=== PATIENT | male | born 1965 | race African-American/Black ===

== ENCOUNTER 2021-04-15 11:07 | Inpatient (IN) | payer OTHER ==
[2021-04-15 14:24] VITALS: BMI 26.9
[2021-04-15] MEDS ORDERED: MAGNESIUM CITRATE 300 ML BOTTLE PO PRN (18:57)
[2021-04-15] MEDS ORDERED: ACETAMINOPHEN 325 MG TABLET (FP) PO PRN (18:57)
[2021-04-15] MEDS ORDERED: MAG HYDROX/AL HYDROX/SIMETH 30 ML UNIT-DOSE CUP PO PRN (18:57)
[2021-04-15] MEDS ORDERED: LOPERAMIDE HCL 2 MG CAPSULE PO PRN (18:57)
[2021-04-15] MEDS ORDERED: IBUPROFEN 400 MG TABLET (FP) PO PRN (18:57)
[2021-04-15] MEDS ORDERED: P-EPHED 60MG/TRIPROLIDI 2.5MG TABLET PO PRN (18:57)
[2021-04-15] MEDS ORDERED: guaiFENesin 200 MG/10 ML 10 ML UNIT-DOSE CUPS PO PRN (18:57)
[2021-04-15] MEDS ORDERED: MAGNESIUM HYDROX 2400MG/30ML ORAL SUSPENSION 30 ML CUP PO PRN (18:57)
[2021-04-15] MEDS ORDERED: TUBERCULIN PPD 5 TU/0.1ML VIAL ID ONE (20:34)
[2021-04-15] MEDS: THIAMINE HCL 100 MG TABLET (FP) PO SCH (21:32)
[2021-04-15] MEDS: MELATONIN 5 MG TABLETS PO SCH (21:32)
[2021-04-16 08:21] LABS: HEMATOCRIT 43.9 % (35.4-49); HEMOGLOBIN 15.3 GM/dL (11.7-16.9); MCH 30.9 pg (25.7-33.7); MCHC 34.9 g/dl (32.0-35.9); MEAN CELL VOLUME 88.4 fl (80-96); MEAN PLT VOLUME 8.6 fl (7.5-11.1); PLATELET COUNT 244 10^3/uL (134-434); RBC 4.96 M/mm3 (4.00-5.60); RDW 13.7 % (11.9-15.9); WHITE BLOOD COUNT 5.1 K/mm3 (4.0-10.0)
[2021-04-16 09:06] LABS: ALBUMIN 3.6 g/dl (3.4-5.0); BLOOD UREA NITROGEN 12.7 mg/dL (7-18)
[2021-04-16 09:09] LABS: CREATININE 1.3 mg/dL (0.55-1.3)
[2021-04-16 09:11] LABS: BILIRUBIN,TOTAL 0.6 mg/dL (0.2-1)
[2021-04-16] MEDS: PRENATAL VITAMINS W/ FOLIC ACID TABLET (FP) PO SCH (10:05)
[2021-04-16] MEDS: NICOTINE 10 MG CARTRIDGE (INHALER) IH PRN (10:06)
[2021-04-16] MEDS: DOLUTEGRAVIR SODIUM 50 MG TABLET (NON-FORMULARY) PO SCH (11:03)
[2021-04-16] MEDS: EMTRICITABINE/TENOFOV ALAFENAM (DESCOVY) TABLET PO SCH (11:03)
[2021-04-16] MEDS ORDERED: PT OWN MED DRAWER 7, Y5N ONE (14:48)
[2021-04-16 15:32] LABS: URINE APPEARANCE CLEAR; URINE BILIRUBIN NEGATIVE (NEGATIVE); URINE COLOR YELLOW; URINE GLUCOSE (UA) NEGATIVE (NEGATIVE); URINE KETONE NEGATIVE (NEGATIVE); URINE LEUK ESTERASE NEGATIVE (NEGATIVE); URINE NITRITE NEGATIVE (NEGATIVE); URINE PROTEIN NEGATIVE (NEGATIVE); URINE UROBILINOGEN 0.2 mg/dL (0.2-1.0)
[2021-04-16] MEDS: THIAMINE HCL 100 MG TABLET (FP) PO SCH (22:03)
[2021-04-16] MEDS: MELATONIN 5 MG TABLETS PO SCH (22:03)
[2021-04-17] MEDS ORDERED: PT OWN MED DRAWER 7, Y5N ONE ×2 (03:20→14:24)
[2021-04-17] MEDS: EMTRICITABINE/TENOFOV ALAFENAM (DESCOVY) TABLET PO SCH (07:24)
[2021-04-17] MEDS: DOLUTEGRAVIR SODIUM 50 MG TABLET (NON-FORMULARY) PO SCH (07:25)
[2021-04-17] MEDS: PRENATAL VITAMINS W/ FOLIC ACID TABLET (FP) PO SCH (10:09)
[2021-04-17] MEDS: NICOTINE POLACRILEX 2 MG GUM BC PRN (10:10)
[2021-04-17] MEDS: THIAMINE HCL 100 MG TABLET (FP) PO SCH (23:24)
[2021-04-17] MEDS: MELATONIN 5 MG TABLETS PO SCH (23:24)
[2021-04-18] MEDS ORDERED: PT OWN MED DRAWER 7, Y5N ONE ×2 (05:45→07:03)
[2021-04-18] MEDS: EMTRICITABINE/TENOFOV ALAFENAM (DESCOVY) TABLET PO SCH (07:03)
[2021-04-18] MEDS: DOLUTEGRAVIR SODIUM 50 MG TABLET (NON-FORMULARY) PO SCH (07:03)
[2021-04-18] MEDS: NICOTINE POLACRILEX 2 MG GUM BC PRN (09:45)
[2021-04-18] MEDS: PRENATAL VITAMINS W/ FOLIC ACID TABLET (FP) PO SCH (09:45)
[2021-04-18] MEDS: THIAMINE HCL 100 MG TABLET (FP) PO SCH (23:21)
[2021-04-18] MEDS: MELATONIN 5 MG TABLETS PO SCH (23:21)
[2021-04-19] MEDS ORDERED: PT OWN MED DRAWER 7, Y5N ONE (06:33)
[2021-04-19] MEDS: PRENATAL VITAMINS W/ FOLIC ACID TABLET (FP) PO SCH (09:54)
[2021-04-19] MEDS: EMTRICITABINE/TENOFOV ALAFENAM (DESCOVY) TABLET PO SCH (10:12)
[2021-04-19] MEDS: DOLUTEGRAVIR SODIUM 50 MG TABLET (NON-FORMULARY) PO SCH (10:12)
[2021-04-19] MEDS: MELATONIN 5 MG TABLETS PO SCH (23:37)
[2021-04-19] MEDS: THIAMINE HCL 100 MG TABLET (FP) PO SCH (23:37)
[2021-04-20] MEDS ORDERED: PT OWN MED DRAWER 7, Y5N ONE (05:28)
[2021-04-20] MEDS: EMTRICITABINE/TENOFOV ALAFENAM (DESCOVY) TABLET PO SCH (07:00)
[2021-04-20] MEDS: DOLUTEGRAVIR SODIUM 50 MG TABLET (NON-FORMULARY) PO SCH (07:00)
[2021-04-20] MEDS: PRENATAL VITAMINS W/ FOLIC ACID TABLET (FP) PO SCH (10:15)
[2021-04-20] MEDS: MELATONIN 5 MG TABLETS PO SCH (22:36)
[2021-04-20] MEDS: THIAMINE HCL 100 MG TABLET (FP) PO SCH (22:36)
[2021-04-21] MEDS ORDERED: PT OWN MED DRAWER 7, Y5N ONE ×2 (06:35→10:28)
[2021-04-21] MEDS: PRENATAL VITAMINS W/ FOLIC ACID TABLET (FP) PO SCH (10:05)
[2021-04-21] MEDS: EMTRICITABINE/TENOFOV ALAFENAM (DESCOVY) TABLET PO SCH (10:05)
[2021-04-21] MEDS: DOLUTEGRAVIR SODIUM 50 MG TABLET (NON-FORMULARY) PO SCH (10:05)
[2021-04-21] MEDS: NICOTINE 10 MG CARTRIDGE (INHALER) IH PRN (10:06)
[2021-04-21] MEDS: THIAMINE HCL 100 MG TABLET (FP) PO SCH (21:42)
[2021-04-21] MEDS: MELATONIN 5 MG TABLETS PO SCH (21:42)
[2021-04-22] MEDS ORDERED: PT OWN MED DRAWER 7, Y5N ONE (05:47)
[2021-04-22] MEDS: DOLUTEGRAVIR SODIUM 50 MG TABLET (NON-FORMULARY) PO SCH (07:01)
[2021-04-22] MEDS: EMTRICITABINE/TENOFOV ALAFENAM (DESCOVY) TABLET PO SCH (07:01)
[2021-04-22] MEDS: PRENATAL VITAMINS W/ FOLIC ACID TABLET (FP) PO SCH (10:19)
[2021-04-22] MEDS: NICOTINE 10 MG CARTRIDGE (INHALER) IH PRN (10:19)
[2021-04-22] MEDS: MELATONIN 5 MG TABLETS PO SCH (21:52)
[2021-04-22] MEDS: THIAMINE HCL 100 MG TABLET (FP) PO SCH (21:52)
[2021-04-22] MEDS: NICOTINE POLACRILEX 2 MG GUM BC PRN (21:54)
[2021-04-23] MEDS: EMTRICITABINE/TENOFOV ALAFENAM (DESCOVY) TABLET PO SCH (07:07)
[2021-04-23] MEDS: DOLUTEGRAVIR SODIUM 50 MG TABLET (NON-FORMULARY) PO SCH (07:07)
[2021-04-23] MEDS: PRENATAL VITAMINS W/ FOLIC ACID TABLET (FP) PO SCH (09:35)
[2021-04-23] MEDS: NICOTINE POLACRILEX 2 MG GUM BC PRN (09:36)
[2021-04-23] MEDS: THIAMINE HCL 100 MG TABLET (FP) PO SCH (22:36)
[2021-04-23] MEDS: MELATONIN 5 MG TABLETS PO SCH (22:37)
[2021-04-24] MEDS: DOLUTEGRAVIR SODIUM 50 MG TABLET (NON-FORMULARY) PO SCH (07:00)
[2021-04-24] MEDS: EMTRICITABINE/TENOFOV ALAFENAM (DESCOVY) TABLET PO SCH (07:00)
[2021-04-24] MEDS: PRENATAL VITAMINS W/ FOLIC ACID TABLET (FP) PO SCH (10:01)
[2021-04-24] MEDS: NICOTINE 10 MG CARTRIDGE (INHALER) IH PRN ×2 (10:01→21:44)
[2021-04-24] MEDS: MELATONIN 5 MG TABLETS PO SCH (21:44)
[2021-04-24] MEDS: THIAMINE HCL 100 MG TABLET (FP) PO SCH (21:44)
[2021-04-25] MEDS: EMTRICITABINE/TENOFOV ALAFENAM (DESCOVY) TABLET PO SCH (07:12)
[2021-04-25] MEDS: DOLUTEGRAVIR SODIUM 50 MG TABLET (NON-FORMULARY) PO SCH (07:12)
[2021-04-25] MEDS: PRENATAL VITAMINS W/ FOLIC ACID TABLET (FP) PO SCH (09:57)
[2021-04-25] MEDS: NICOTINE POLACRILEX 2 MG GUM BC PRN (09:57)
[2021-04-25] MEDS: MELATONIN 5 MG TABLETS PO SCH (21:46)
[2021-04-25] MEDS: THIAMINE HCL 100 MG TABLET (FP) PO SCH (21:46)
[2021-04-26] MEDS ORDERED: PT OWN MED DRAWER 7, Y5N ONE ×2 (03:30→07:18)
[2021-04-26] MEDS: NICOTINE 10 MG CARTRIDGE (INHALER) IH PRN ×2 (06:30→21:20)
[2021-04-26] MEDS: DOLUTEGRAVIR SODIUM 50 MG TABLET (NON-FORMULARY) PO SCH (07:17)
[2021-04-26] MEDS: EMTRICITABINE/TENOFOV ALAFENAM (DESCOVY) TABLET PO SCH (07:17)
[2021-04-26] MEDS: PRENATAL VITAMINS W/ FOLIC ACID TABLET (FP) PO SCH (10:07)
[2021-04-26] MEDS: MELATONIN 5 MG TABLETS PO SCH (21:20)
[2021-04-26] MEDS: THIAMINE HCL 100 MG TABLET (FP) PO SCH (21:20)
[2021-04-27] MEDS: DOLUTEGRAVIR SODIUM 50 MG TABLET (NON-FORMULARY) PO SCH (07:32)
[2021-04-27] MEDS: EMTRICITABINE/TENOFOV ALAFENAM (DESCOVY) TABLET PO SCH (07:32)
[2021-04-27] MEDS: PRENATAL VITAMINS W/ FOLIC ACID TABLET (FP) PO SCH (10:06)
[2021-04-27] MEDS: NICOTINE 10 MG CARTRIDGE (INHALER) IH PRN (10:07)
[2021-04-27] MEDS: MELATONIN 5 MG TABLETS PO SCH (21:32)
[2021-04-27] MEDS: THIAMINE HCL 100 MG TABLET (FP) PO SCH (21:32)
[2021-04-27] MEDS: NICOTINE POLACRILEX 2 MG GUM BC PRN (21:33)
[2021-04-28] MEDS: DOLUTEGRAVIR SODIUM 50 MG TABLET (NON-FORMULARY) PO SCH (07:23)
[2021-04-28] MEDS: EMTRICITABINE/TENOFOV ALAFENAM (DESCOVY) TABLET PO SCH (07:23)
[2021-04-28] MEDS: PRENATAL VITAMINS W/ FOLIC ACID TABLET (FP) PO SCH (10:02)
[2021-04-28] MEDS: NICOTINE 10 MG CARTRIDGE (INHALER) IH PRN ×2 (10:03→19:51)
[2021-04-28] MEDS: MELATONIN 5 MG TABLETS PO SCH (21:18)
[2021-04-28] MEDS: THIAMINE HCL 100 MG TABLET (FP) PO SCH (21:18)
[2021-04-29] MEDS ORDERED: PT OWN MED DRAWER 7, Y5N ONE (03:43)
[2021-04-29] MEDS: NICOTINE 10 MG CARTRIDGE (INHALER) IH PRN (06:35)
[2021-04-29 06:50] VITALS: BP 111/75; PULSE 81; TEMP 97.5
[2021-04-29] MEDS: EMTRICITABINE/TENOFOV ALAFENAM (DESCOVY) TABLET PO SCH (07:30)
[2021-04-29] MEDS: DOLUTEGRAVIR SODIUM 50 MG TABLET (NON-FORMULARY) PO SCH (07:30)
[2021-04-29] MEDS: PRENATAL VITAMINS W/ FOLIC ACID TABLET (FP) PO SCH (09:03)
== END 2021-04-29 09:20 | disposition home or self-care (01) | DRG 772 ==
LOC: YASAS 11:07 → Y3E 19:00
PROVIDERS: ADMIT Allergy & Immunology; ATTEND Allergy & Immunology
PROC: HZ42ZZZ Group Counseling for Substance Abuse Treatment, Cognitive-Behavioral (ICD-10-PCS; principal; 2021-04-15)
DX: F14.20 Cocaine dependence, uncomplicated (principal); F10.10 Alcohol abuse, uncomplicated; F17.210 Nicotine dependence, cigarettes, uncomplicated; Z21 Asymptomatic human immunodeficiency virus [HIV] infection status
CPT/HCPCS: 36415; 71045-TC-FY; 80053; 81003; 85027; 86780; C9803; U0003; U0005

== ENCOUNTER 2021-07-28 13:40 | Inpatient (IN) | payer OTHER ==
[2021-07-28] MEDS ORDERED: NICOTINE 10 MG CARTRIDGE (INHALER) IH PRN (15:35)
[2021-07-28] MEDS ORDERED: guaiFENesin 200 MG/10 ML 10 ML UNIT-DOSE CUPS PO PRN (15:35)
[2021-07-28] MEDS ORDERED: LOPERAMIDE HCL 2 MG CAPSULE PO PRN (15:35)
[2021-07-28] MEDS ORDERED: MAG HYDROX/AL HYDROX/SIMETH 30 ML UNIT-DOSE CUP PO PRN (15:35)
[2021-07-28] MEDS ORDERED: P-EPHED 60MG/TRIPROLIDI 2.5MG TABLET PO PRN (15:35)
[2021-07-28] MEDS ORDERED: MAGNESIUM HYDROX 2400MG/30ML ORAL SUSPENSION 30 ML CUP PO PRN (15:35)
[2021-07-28] MEDS ORDERED: MAGNESIUM CITRATE 300 ML BOTTLE PO PRN (15:35)
[2021-07-28] MEDS ORDERED: ACETAMINOPHEN 325 MG TABLET (FP) PO PRN (15:35)
[2021-07-28] MEDS ORDERED: IBUPROFEN 400 MG TABLET (FP) PO PRN (15:35)
[2021-07-29 02:50] VITALS: BMI 25.9
[2021-07-29] MEDS: hydrOXYzine PAMOATE 25 MG CAPSULE (FP) PO SCH ×5 (02:52→14:12)
[2021-07-29] MEDS: MELATONIN 5 MG TABLETS PO SCH ×2 (02:53→21:34)
[2021-07-29] MEDS: THIAMINE HCL 100 MG TABLET (FP) PO SCH ×2 (02:53→21:33)
[2021-07-29 10:15] LABS: ALBUMIN 3.1 g/dl (3.4-5.0); BLOOD UREA NITROGEN 13.3 mg/dL (7-18); CALCIUM 9.2 mg/dL (8.5-10.1)
[2021-07-29 10:19] LABS: CREATININE 1.3 mg/dL (0.55-1.3)
[2021-07-29 10:20] LABS: BILIRUBIN,TOTAL 0.5 mg/dL (0.2-1); TOT PROT 6.4 g/dl (6.4-8.2)
[2021-07-29 10:40] LABS: HEMATOCRIT 43.5 % (35.4-49); HEMOGLOBIN 14.3 GM/dL (11.7-16.9); MCH 28.7 pg (25.7-33.7); MCHC 32.8 g/dl (32.0-35.9); MEAN CELL VOLUME 87.4 fl (80-96); MEAN PLT VOLUME 8.7 fl (7.5-11.1); PLATELET COUNT 207 10^3/uL (134-434); RBC 4.98 M/mm3 (4.00-5.60); RDW 13.3 % (11.9-15.9); WHITE BLOOD COUNT 5.4 K/mm3 (4.0-10.0)
[2021-07-29] MEDS: DOLUTEGRAVIR SODIUM 50 MG TABLET (NON-FORMULARY) PO SCH ×2 (10:56→11:03)
[2021-07-29] MEDS: NICOTINE 7 MG/24 HOURS TOPICAL PATCH TD SCH ×2 (10:56→11:02)
[2021-07-29] MEDS: EMTRICITABINE/TENOFOV ALAFENAM (DESCOVY) TABLET PO SCH (11:03)
[2021-07-29] MEDS: PRENATAL VITAMINS W/ FOLIC ACID TABLET (FP) PO SCH (11:03)
[2021-07-29 13:25] LABS: URINE APPEARANCE CLEAR; URINE BILIRUBIN NEGATIVE (NEGATIVE); URINE COLOR YELLOW; URINE GLUCOSE (UA) NEGATIVE (NEGATIVE); URINE KETONE NEGATIVE (NEGATIVE); URINE LEUK ESTERASE NEGATIVE (NEGATIVE); URINE NITRITE NEGATIVE (NEGATIVE); URINE PROTEIN NEGATIVE (NEGATIVE); URINE UROBILINOGEN 0.2 mg/dL (0.2-1.0)
[2021-07-29] MEDS ORDERED: hydrOXYzine PAMOATE 25 MG CAPSULE (FP) PO PRN (15:13)
[2021-07-29 21:09] LABS: SYPHILIS W/ RPR CONF NON-REACTIVE (NONREACTIVE)
[2021-07-30] MEDS ORDERED: EMTRICITABINE/TENOFOV ALAFENAM (DESCOVY) TABLET PO SCH
[2021-07-30] MEDS ORDERED: DOLUTEGRAVIR SODIUM 50 MG TABLET (NON-FORMULARY) PO SCH
[2021-07-30] MEDS: NICOTINE 7 MG/24 HOURS TOPICAL PATCH TD SCH (09:30)
[2021-07-30] MEDS: DOLUTEGRAVIR SODIUM 50 MG TABLET (NON-FORMULARY) PO SCH (09:30)
[2021-07-30] MEDS: PRENATAL VITAMINS W/ FOLIC ACID TABLET (FP) PO SCH (09:30)
[2021-07-30] MEDS: EMTRICITABINE/TENOFOV ALAFENAM (DESCOVY) TABLET PO SCH (09:30)
[2021-07-30 10:24] VITALS: BP 97/59; PULSE 81; TEMP 99
[2021-07-30] MEDS ORDERED: PRESCRIPTION PAD 1 EACH EACH NR ONE (13:03)
== END 2021-07-30 13:38 | disposition home or self-care (01) | DRG 772 ==
LOC: YASAS 13:40 → Y3W 07-29 01:50
PROVIDERS: ADMIT Allergy & Immunology; ATTEND Allergy & Immunology
PROC: HZ42ZZZ Group Counseling for Substance Abuse Treatment, Cognitive-Behavioral (ICD-10-PCS; principal; 2021-07-29)
DX: F10.20 Alcohol dependence, uncomplicated (principal); F14.20 Cocaine dependence, uncomplicated; F15.20 Other stimulant dependence, uncomplicated; F12.20 Cannabis dependence, uncomplicated; F17.210 Nicotine dependence, cigarettes, uncomplicated; F19.24 Other psychoactive substance dependence with psychoactive substance-induced mood disorder; F41.9 Anxiety disorder, unspecified; F32.A Depression, unspecified; M54.50 Low back pain, unspecified; Z21 Asymptomatic human immunodeficiency virus [HIV] infection status; Z20.822 Contact with and (suspected) exposure to COVID-19
CPT/HCPCS: 36415; 80053; 81003; 85027; 86780; 86803; C9803; U0003; U0005

== ENCOUNTER 2022-04-30 11:46 | Inpatient (IN) | payer OTHER ==
[2022-04-30 16:07] VITALS: BMI 25.1
[2022-04-30] MEDS ORDERED: IBUPROFEN 600 MG TABLET (FP) PO PRN (17:23)
[2022-04-30] MEDS ORDERED: MAGNESIUM CITRATE 300 ML BOTTLE PO PRN (17:23)
[2022-04-30] MEDS ORDERED: METHOCARBAMOL 500 MG TABLET PO PRN (17:23)
[2022-04-30] MEDS ORDERED: ACETAMINOPHEN 325 MG TABLET (FP) PO PRN ×2 (17:23)
[2022-04-30] MEDS ORDERED: NICOTINE 10 MG CARTRIDGE (INHALER) IH PRN (17:23)
[2022-04-30] MEDS ORDERED: BISMUTH SUBSALICYLATE 524 MG/30 ML PO PRN (17:23)
[2022-04-30] MEDS ORDERED: MAGNESIUM HYDROX 2400MG/30ML ORAL SUSPENSION 30 ML CUP PO PRN (17:23)
[2022-04-30] MEDS ORDERED: ONDANSETRON *ODT* 4 MG TABLET SL PRN (17:23)
[2022-04-30] MEDS ORDERED: NALOXONE HCL (KLOXXADO) 8 MG SPRAY NS PRN (17:23)
[2022-04-30] MEDS ORDERED: MAG HYDROX/AL HYDROX/SIMETH 30 ML UNIT-DOSE CUP PO PRN (17:23)
[2022-04-30] MEDS ORDERED: LOPERAMIDE HCL 2 MG CAPSULE PO PRN (17:23)
[2022-04-30] MEDS ORDERED: DICYCLOMINE HCL 10 MG CAPSULE PO PRN (17:23)
[2022-04-30] MEDS ORDERED: IBUPROFEN 400 MG TABLET (FP) PO PRN (17:23)
[2022-04-30] MEDS ORDERED: BENZOCAINE/MENTHOL (CHLORASEPTIC ) LOZENGE MM PRN (17:23)
[2022-04-30] MEDS: PRENATAL VITAMINS W/ FOLIC ACID TABLET (FP) PO SCH (19:37)
[2022-04-30] MEDS: hydrOXYzine PAMOATE 25 MG CAPSULE (FP) PO SCH ×2 (19:38→22:49)
[2022-04-30] MEDS ORDERED: PATIENT'S OWN MEDICATION (NON-FORMULARY) (Multivitamin [Daily Vite] 1 EACH Tablet) PO SCH (19:45)
[2022-04-30] MEDS: MELATONIN 5 MG TABLETS PO SCH (22:49)
[2022-04-30] MEDS: EMTRICITABINE/TENOFOV ALAFENAM (DESCOVY) TABLET PO SCH (22:49)
[2022-04-30] MEDS: GABAPENTIN 300 MG CAPSULE PO SCH (22:49)
[2022-04-30] MEDS: THIAMINE HCL 100 MG TABLET (FP) PO SCH (22:49)
[2022-04-30] MEDS: DOLUTEGRAVIR SODIUM 50 MG TABLET (NON-FORMULARY) PO SCH (22:49)
[2022-05-01] MEDS: hydrOXYzine PAMOATE 25 MG CAPSULE (FP) PO SCH ×5 (06:38→22:35)
[2022-05-01] MEDS: PRENATAL VITAMINS W/ FOLIC ACID TABLET (FP) PO SCH (10:54)
[2022-05-01] MEDS: DOLUTEGRAVIR SODIUM 50 MG TABLET (NON-FORMULARY) PO SCH (10:55)
[2022-05-01] MEDS: GABAPENTIN 300 MG CAPSULE PO SCH ×2 (10:55→22:35)
[2022-05-01] MEDS: EMTRICITABINE/TENOFOV ALAFENAM (DESCOVY) TABLET PO SCH (10:55)
[2022-05-01] MEDS: MULTIVITAMINS (DAILY MVI) TABLET (FP) PO SCH (11:00)
[2022-05-01 11:09] LABS: HEMOGLOBIN 14.8 GM/dL (11.7-16.9); MCH 28.9 pg (25.7-33.7); MEAN CELL VOLUME 87.8 fl (80-96); MEAN PLT VOLUME 8.7 fl (7.5-11.1); PLATELET COUNT 256 10^3/uL (134-434); RBC 5.12 M/mm3 (4.00-5.60); RDW 13.6 % (11.9-15.9); WHITE BLOOD COUNT 5.6 K/mm3 (4.0-10.0)
[2022-05-01 11:21] LABS: ALBUMIN 3.6 g/dl (3.4-5.0); BLOOD UREA NITROGEN 17.9 mg/dL (7-18); CALCIUM 9.2 mg/dL (8.5-10.1)
[2022-05-01 11:24] LABS: CREATININE 1.3 mg/dL (0.55-1.3)
[2022-05-01 11:25] LABS: BILIRUBIN,TOTAL 0.6 mg/dL (0.2-1); TOT PROT 6.9 g/dl (6.4-8.2)
[2022-05-01] MEDS ORDERED: FLU VACC QS2022-23(6MOS UP)/PF 60 MCG/0.5 ML SYRINGE IM ONE (12:00)
[2022-05-01] MEDS: THIAMINE HCL 100 MG TABLET (FP) PO SCH (22:35)
[2022-05-01] MEDS: MELATONIN 5 MG TABLETS PO SCH (22:35)
[2022-05-02 06:09] VITALS: RESP 18
[2022-05-02] MEDS: hydrOXYzine PAMOATE 25 MG CAPSULE (FP) PO SCH ×2 (07:07→09:52)
[2022-05-02 09:29] VITALS: BP 95/50; PULSE 85; TEMP 97.9
[2022-05-02] MEDS: DOLUTEGRAVIR SODIUM 50 MG TABLET (NON-FORMULARY) PO SCH (09:52)
[2022-05-02] MEDS: MULTIVITAMINS (DAILY MVI) TABLET (FP) PO SCH (09:52)
[2022-05-02] MEDS: GABAPENTIN 300 MG CAPSULE PO SCH (09:52)
[2022-05-02] MEDS: EMTRICITABINE/TENOFOV ALAFENAM (DESCOVY) TABLET PO SCH (09:52)
[2022-05-02] MEDS: PRENATAL VITAMINS W/ FOLIC ACID TABLET (FP) PO SCH (09:52)
== END 2022-05-02 09:30 | disposition home or self-care (01) | DRG 773 ==
LOC: YASAS 11:46 → Y3N 18:03
PROVIDERS: ADMIT Allergy & Immunology; ATTEND Surgery
PROC: HZ2ZZZZ Detoxification Services for Substance Abuse Treatment (ICD-10-PCS; principal; 2022-04-30)
DX: F11.23 Opioid dependence with withdrawal (principal); F10.230 Alcohol dependence with withdrawal, uncomplicated; F14.20 Cocaine dependence, uncomplicated; F17.210 Nicotine dependence, cigarettes, uncomplicated; F41.9 Anxiety disorder, unspecified; F32.A Depression, unspecified; Z21 Asymptomatic human immunodeficiency virus [HIV] infection status
CPT/HCPCS: 36415; 80053; 85027; 86780; 87811; C9803-CS; G0008; Q2036; U0003; U0005

== ENCOUNTER 2023-10-18 11:21 | Inpatient (IN) | payer OTHER ==
[2023-10-18 11:48] VITALS: BMI 25.8
[2023-10-18] MEDS ORDERED: LOPERAMIDE HCL 2 MG CAPSULE PO PRN (12:40)
[2023-10-18] MEDS ORDERED: MAGNESIUM HYDROX 2400MG/30ML ORAL SUSPENSION 30 ML CUP PO PRN (12:40)
[2023-10-18] MEDS ORDERED: ACETAMINOPHEN 325 MG TABLET (FP) PO PRN (12:40)
[2023-10-18] MEDS ORDERED: BENZOCAINE/MENTHOL (CHLORASEPTIC ) LOZENGE MM PRN (12:40)
[2023-10-18] MEDS ORDERED: guaiFENesin 600 MG TABLET.ER (FP) PO PRN (12:40)
[2023-10-18] MEDS ORDERED: IBUPROFEN 600 MG TABLET (FP) PO PRN (12:40)
[2023-10-18] MEDS ORDERED: NALOXONE HCL 0.4 MG/ML VIAL IM PRN (12:40)
[2023-10-18] MEDS ORDERED: POLYETHYLENE GLYCOL (HEALTHYLAX) 3350 17 GM PACKET PO PRN (12:40)
[2023-10-18] MEDS ORDERED: MAG HYDROX/AL HYDROX/SIMETH 30 ML UNIT-DOSE CUP PO PRN (12:40)
[2023-10-18] MEDS ORDERED: IBUPROFEN 400 MG TABLET (FP) PO PRN (12:40)
[2023-10-18] MEDS ORDERED: BENZONATATE 200 MG CAPSULE PO PRN (12:40)
[2023-10-18] MEDS ORDERED: NALOXONE HCL (KLOXXADO) 8 MG SPRAY NS PRN (12:40)
[2023-10-18] MEDS ORDERED: NICOTINE 21 MG/24 HOURS TOPICAL PATCH ONE (14:06)
[2023-10-18] MEDS ORDERED: PRENATAL VITAMINS W/ FOLIC ACID TABLET (FP) PO ONE (14:06)
[2023-10-18] MEDS: NICOTINE 21 MG/24 HOURS TOPICAL PATCH TD SCH (14:14)
[2023-10-18] MEDS: PRENATAL VITAMINS W/ FOLIC ACID TABLET (FP) PO SCH (14:15)
[2023-10-18] MEDS: MELATONIN 5 MG TABLETS PO SCH (21:07)
[2023-10-18] MEDS: THIAMINE HCL 100 MG TABLET (FP) PO SCH (21:07)
[2023-10-18] MEDS: NORTRIPTYLINE HCL 25 MG CAPSULE PO SCH (23:26)
[2023-10-19] MEDS: DOLUTEGRAVIR SODIUM 50 MG TABLET (NON-FORMULARY) PO SCH (09:25)
[2023-10-19] MEDS: TAMSULOSIN HCL 0.4 MG CAP PO SCH (09:25)
[2023-10-19] MEDS: EMTRICITABINE/TENOFOV ALAFENAM (DESCOVY) TABLET PO SCH (09:25)
[2023-10-19 11:32] LABS: HEMATOCRIT 49.3 % (35.4-49); HEMOGLOBIN 16.4 GM/dL (11.7-16.9); MCHC 33.2 g/dl (32.0-35.9); MEAN CELL VOLUME 87.3 fl (80-96); MEAN PLT VOLUME 8.1 fl (7.5-11.1); PLATELET COUNT 292 10^3/uL (134-434); RBC 5.65 M/mm3 (4.00-5.60); RDW 13.5 % (11.9-15.9); WHITE BLOOD COUNT 6.2 K/mm3 (4.0-10.0)
[2023-10-19 11:59] LABS: ALBUMIN 3.4 g/dl (3.4-5.0); CALCIUM 9.6 mg/dL (8.5-10.1)
[2023-10-19 12:00] LABS: BLOOD UREA NITROGEN 11.4 mg/dL (7-18)
[2023-10-19 12:03] LABS: CREATININE 1.3 mg/dL (0.55-1.3)
[2023-10-19 12:04] LABS: BILIRUBIN,TOTAL 0.5 mg/dL (0.2-1); TOT PROT 7.1 g/dl (6.4-8.2)
[2023-10-19 12:39] LABS: SYPHILIS W/ RPR CONF REACTIVE (NONREACTIVE)
[2023-10-19 16:11] LABS: PH,URINE 5.5 (5.0-8.0); URINE APPEARANCE CLEAR; URINE BILIRUBIN NEGATIVE (NEGATIVE); URINE COLOR YELLOW; URINE GLUCOSE (UA) NEGATIVE (NEGATIVE); URINE KETONE NEGATIVE (NEGATIVE); URINE LEUK ESTERASE NEGATIVE (NEGATIVE); URINE NITRITE NEGATIVE (NEGATIVE); URINE PROTEIN NEGATIVE (NEGATIVE); URINE UROBILINOGEN 0.2 mg/dL (0.2-1.0)
[2023-10-21] MEDS: hydrOXYzine PAMOATE 25 MG CAPSULE (FP) PO PRN (21:23)
[2023-10-30 06:47] VITALS: RESP 18
[2023-10-31 07:47] VITALS: TEMP 97.7
[2023-10-31 09:03] VITALS: BP 113/79; PULSE 93
== END 2023-10-31 10:22 | disposition home or self-care (01) | DRG 772 ==
LOC: YASAS 11:21 → Y3NR 17:15 → Y3W 17:16
PROVIDERS: ADMIT Allergy & Immunology; ATTEND Psychiatry & Neurology Pain Medicine
PROC: HZ42ZZZ Group Counseling for Substance Abuse Treatment, Cognitive-Behavioral (ICD-10-PCS; principal; 2023-10-18)
DX: F14.20 Cocaine dependence, uncomplicated (principal); F15.20 Other stimulant dependence, uncomplicated; F12.20 Cannabis dependence, uncomplicated; F17.210 Nicotine dependence, cigarettes, uncomplicated; F19.24 Other psychoactive substance dependence with psychoactive substance-induced mood disorder; F32.A Depression, unspecified; N40.0 Benign prostatic hyperplasia without lower urinary tract symptoms; Z86.11 Personal history of tuberculosis; Z86.14 Personal history of Methicillin resistant Staphylococcus aureus infection
CPT/HCPCS: 36415; 71046-TC-FY; 80053; 80305; 81003; 85027; 86593; 86780; 86803; 87635; 87811; 93005; 93010

== ENCOUNTER 2024-02-03 11:52 | Inpatient (IN) | payer OTHER ==
[2024-02-03 12:59] VITALS: BMI 26.7
[2024-02-03] MEDS ORDERED: NALOXONE (NARCAN) HCL 4 MG/0.1 ML SPRAY NS PRN (13:29)
[2024-02-03] MEDS ORDERED: LOPERAMIDE HCL 2 MG CAPSULE PO PRN (13:29)
[2024-02-03] MEDS ORDERED: POLYETHYLENE GLYCOL (HEALTHYLAX) 3350 17 GM PACKET PO PRN (13:29)
[2024-02-03] MEDS ORDERED: MAGNESIUM HYDROX 2400MG/30ML ORAL SUSPENSION 30 ML CUP PO PRN (13:29)
[2024-02-03] MEDS ORDERED: guaiFENesin 600 MG TABLET.ER (FP) PO PRN (13:29)
[2024-02-03] MEDS ORDERED: NALOXONE HCL 0.4 MG/ML VIAL IM PRN (13:29)
[2024-02-03] MEDS ORDERED: MAG HYDROX/AL HYDROX/SIMETH 30 ML UNIT-DOSE CUP PO PRN (13:29)
[2024-02-03] MEDS ORDERED: IBUPROFEN 400 MG TABLET (FP) PO PRN (13:29)
[2024-02-03] MEDS ORDERED: BENZOCAINE/MENTHOL (CHLORASEPTIC ) LOZENGE MM PRN (13:29)
[2024-02-03] MEDS ORDERED: BENZONATATE 200 MG CAPSULE PO PRN (13:29)
[2024-02-03] MEDS: PRENATAL VITAMINS W/ FOLIC ACID TABLET (FP) PO SCH (15:43)
[2024-02-03] MEDS: NICOTINE 7 MG/24 HOURS TOPICAL PATCH TD SCH (15:43)
[2024-02-03] MEDS: THIAMINE 100 MG TABLET PO SCH (21:59)
[2024-02-03] MEDS ORDERED: MELATONIN 5 MG TABLETS PO SCH (22:00)
[2024-02-04] MEDS: TAMSULOSIN HCL 0.4 MG CAP PO SCH (07:41)
[2024-02-04] MEDS: DOLUTEGRAVIR SODIUM 50 MG TABLET (NON-FORMULARY) PO SCH (10:31)
[2024-02-04] MEDS: EMTRICITABINE/TENOFOV ALAFENAM (DESCOVY) TABLET PO SCH (10:31)
[2024-02-04 11:10] LABS: HEMATOCRIT 43.8 % (35.4-49); HEMOGLOBIN 14.7 GM/dL (11.7-16.9); MCH 29.1 pg (25.7-33.7); MCHC 33.6 g/dl (32.0-35.9); MEAN CELL VOLUME 86.8 fl (80-96); PLATELET COUNT 256 10^3/uL (134-434); RBC 5.04 M/mm3 (4.00-5.60); RDW 13.5 % (11.9-15.9); WHITE BLOOD COUNT 5.9 K/mm3 (4.0-10.0)
[2024-02-04 11:13] LABS: POTASSIUM 3.8 mmol/L (3.5-5.1)
[2024-02-04 11:15] LABS: ALBUMIN 3.4 g/dl (3.4-5.0); BLOOD UREA NITROGEN 11.1 mg/dL (7-18); CALCIUM 8.9 mg/dL (8.5-10.1)
[2024-02-04 11:18] LABS: CREATININE 1.3 mg/dL (0.55-1.3)
[2024-02-04 11:20] LABS: BILIRUBIN,TOTAL 0.4 mg/dL (0.2-1); TOT PROT 6.5 g/dl (6.4-8.2)
[2024-02-04 12:17] LABS: SYPHILIS W/ RPR CONF REACTIVE (NONREACTIVE)
[2024-02-04 14:30] LABS: URINE APPEARANCE CLEAR; URINE BILIRUBIN NEGATIVE (NEGATIVE); URINE COLOR YELLOW; URINE GLUCOSE (UA) NEGATIVE (NEGATIVE); URINE KETONE NEGATIVE (NEGATIVE); URINE LEUK ESTERASE NEGATIVE (NEGATIVE); URINE NITRITE NEGATIVE (NEGATIVE); URINE PROTEIN NEGATIVE (NEGATIVE); URINE UROBILINOGEN 0.2 mg/dL (0.2-1.0)
[2024-02-04] MEDS: SUVOREXANT 10 MG TABLET PO PRN (21:36)
[2024-02-06] MEDS: SUVOREXANT 10 MG TABLET PO PRN (21:29)
[2024-02-07] MEDS: TAMSULOSIN HCL 0.4 MG CAP PO SCH (07:30)
[2024-02-07] MEDS: PRENATAL VITAMINS W/ FOLIC ACID TABLET (FP) PO SCH (07:31)
[2024-02-07] MEDS: NICOTINE 7 MG/24 HOURS TOPICAL PATCH TD SCH (07:31)
[2024-02-07] MEDS: hydrOXYzine PAMOATE 25 MG CAPSULE (FP) PO PRN (21:02)
[2024-02-08] MEDS: IBUPROFEN 600 MG TABLET (FP) PO PRN (08:48)
[2024-02-08] MEDS: BACLOFEN 10 MG TABLET (FP) PO SCH (14:35)
[2024-02-10] MEDS: traZODone HCL 50 MG TABLET (FP) PO SCH (21:14)
[2024-02-14] MEDS: ACETAMINOPHEN 325 MG TABLET (FP) PO PRN (18:04)
[2024-02-15 06:33] VITALS: TEMP 98
[2024-02-16 06:32] VITALS: BP 129/81; PULSE 80; RESP 16
== END 2024-02-16 09:19 | disposition home or self-care (01) | DRG 772 ==
LOC: YASAS 11:52 → Y3E 15:51
PROVIDERS: ADMIT Allergy & Immunology; ATTEND Psychiatry & Neurology Pain Medicine
PROC: HZ42ZZZ Group Counseling for Substance Abuse Treatment, Cognitive-Behavioral (ICD-10-PCS; principal; 2024-02-03)
DX: F14.20 Cocaine dependence, uncomplicated (principal); F10.20 Alcohol dependence, uncomplicated; F15.20 Other stimulant dependence, uncomplicated; F17.210 Nicotine dependence, cigarettes, uncomplicated; F19.24 Other psychoactive substance dependence with psychoactive substance-induced mood disorder; Z21 Asymptomatic human immunodeficiency virus [HIV] infection status; N40.0 Benign prostatic hyperplasia without lower urinary tract symptoms; Z86.11 Personal history of tuberculosis; Z86.14 Personal history of Methicillin resistant Staphylococcus aureus infection; Z79.899 Other long term (current) drug therapy
CPT/HCPCS: 36415; 80053; 80305; 81003; 85027; 86593; 86780; 86803; 87811; J0475